=== PATIENT | male | born 1995 ===

== ENCOUNTER 2022-08-02 12:03 | Outpatient (CLI) | payer OTHER | END 2022-08-02 12:08 | disposition home or self-care (01) | LOC: RAD 12:03 | PROVIDERS: ATTEND Orthopaedic Surgery | DX: S82.65XA Nondisplaced fracture of lateral malleolus of left fibula, initial encounter for closed fracture (principal) ==

== ENCOUNTER 2022-08-24 10:03 | Outpatient (CLI) | payer OTHER | END 2022-08-24 10:09 | disposition home or self-care (01) | LOC: RAD 10:03 | PROVIDERS: ATTEND Orthopaedic Surgery | DX: S82.65XA Nondisplaced fracture of lateral malleolus of left fibula, initial encounter for closed fracture (principal) ==

== ENCOUNTER 2022-09-20 09:50 | Outpatient (CLI) | payer OTHER | END 2022-09-20 09:55 | disposition home or self-care (01) | LOC: RAD 09:50 | PROVIDERS: ATTEND Orthopaedic Surgery | DX: S82.65XA Nondisplaced fracture of lateral malleolus of left fibula, initial encounter for closed fracture (principal) ==